=== PATIENT | male | born 1960 | race Hispanic/Latino ===

== ENCOUNTER 2016-06-07 12:22 | Outpatient (CLI) | payer OTHER ==
[2016-06-07] MEDS ORDERED: PROVENTIL IH ONE (12:26)
== END 2016-06-07 12:23 | disposition home or self-care (01) ==
LOC: PF 12:22
PROVIDERS: ATTEND Internal Medicine
DX: I10 Essential (primary) hypertension (principal); K21.9 Gastro-esophageal reflux disease without esophagitis; E78.00 Pure hypercholesterolemia, unspecified; R53.83 Other fatigue; Z95.1 Presence of aortocoronary bypass graft
CPT/HCPCS: 94060; 94640